=== PATIENT | female | born 1950 | race Caucasian/White ===

== ENCOUNTER 2020-11-30 17:41 | Emergency (ER) | payer MEDICARE, OTHER, SELFPAY ==
[2020-11-30 17:55] VITALS: BP 158/87; PULSE 83; RESP 16; TEMP 37.2; O2SAT 98
--- NOTE | 2020-11-30 18:41 | ED.URI ---
HPI - URI/Sore Throat General Chief Complaint: Upper Respiratory Infection Stated Complaint: sinus infection Source: patient and RN notes reviewed Mode of arrival: ambulatory Limitations: no limitations History of Present Illness HPI Narrative: Jazmin is a 70-year-old female patient who ambulated into the [facility]. Patient states she had cold-like symptoms for 1 week was feeling better then got worse yesterday. Patient states her mother yesterday and she was tearful throughout the night. Patient states she has a headache, nausea ,sinus congestion ,and postnasal drainage. Patient denies any cough. Patient states she has used Tylenol arthritis today without relief of the headache. Related Data Home Medications Medication Instructions Recorded Confirmed Vitamin D3 11/30/20 Zinc 11/30/20 ascorbic acid (vitamin C) [Vitamin 11/30/20 C] aspirin [Aspirin Childrens] 11/30/20 magnesium 11/30/20 melatonin 11/30/20 Allergies Allergy/AdvReac Type Severity Reaction Status Date / Time codeine AdvReac Shakiness Verified 11/30/20 18:44 Review of Systems Review of Systems: CONSTITUTIONAL: Denies body aches, fever, chills, or sweats. EYES: Denies visual changes, redness, or discharge. ENT: Denies rhinorrhea,+ congestion,denies sore throat, or otalgia. CARDIOVASCULAR: Denies chest pain, palpitations, or edema. RESPIRATORY: Denies cough or dyspnea. GASTROINTESTINAL: Denies abdominal pain, +nausea, denies vomiting, or diarrhea. GENITOURINARY: Denies dysuria or hematuria. SKIN: Denies rash, itching, or wounds. MUSCULOSKELETAL: Denies back pain, joint pain, or myalgia. NEUROLOGIC: + headache, denies numbness, tingling, or weakness. PSYCH: Denies depression or anxiety. All systems reviewed & are unremarkable except as noted in HPI and below PMFSH Comments At time of signature, I have reviewed and agree with nursing past medical, surgical, social and family history unless otherwise noted. Please see nursing chart for further information. There is no relevant family history pertinent to the presenting complaint Exam Narrative: GENERAL: Well-appearing, well-nourished, and in no acute distress. HEAD: Normocephalic, atraumatic. EYES: EOMI. No redness or drainage. Conjunctivae normal. ENT: Mucous membranes pink and moist. Nares clear. No rhinorrhea. TMs opaque, fluid filled, mild bulging, no erythema. Throat: clear post nasal drainage noted, mild erythema. Uvula midline. NECK: Normal AROM. Supple. Right anterior cervical lymphadenopathy. CHEST: No respiratory distress. Clear to auscultation. HEART: Regular rate and rhythm. No murmur appreciated. Normal peripheral pulses. MUSCULOSKELETAL: No bony tenderness. EXTREMITIES: Normal range of motion. No edema. SKIN: Warm, dry, no rash. Capillary refill normal. Normal skin turgor. NEURO: No focal deficits. Alert and oriented x3. Gait steady. PSYCH: Normal affect. No signs of depression or anxiety. Course Vital Signs Vital signs: Vital Signs Temperature 37.2 C 11/30/20 17:55 Pulse Rate 83 11/30/20 17:55 Respiratory Rate 16 11/30/20 17:55 Blood Pressure 158/87 H 11/30/20 17:55 Pulse Oximetry 98 11/30/20 17:55 Temperature 37.2 C 11/30/20 17:55 Pulse Rate 83 11/30/20 17:55 Respiratory Rate 16 11/30/20 17:55 Blood Pressure 158/87 H 11/30/20 17:55 Pulse Oximetry 98 11/30/20 17:55 Reviewed. Pt has been instructed to follow up with her PCP regarding her elevated blood pressure today. MDM - URI/Sore Throat Differential Diagnosis Differential diagnosis: Likely upper respiratory infection, otitis media, sinusitis and pharyngitis Critical Care Time Critical Care Time Critical Care Time: No Discharge Plan Discharge Clinical Impression: Sinusitis Qualifiers: Sinusitis location: frontal Chronicity: acute Recurrence: non-recurrent Qualified Code(s): J01.10 - Acute frontal sinusitis, unspecified Patient Dispos
== END 2020-11-30 18:50 | disposition home or self-care (01) ==
PROVIDERS: Emergency Provider Nurse Practitioner Family; PCP Internal Medicine
DX: J01.10 Acute frontal sinusitis, unspecified (principal)
CPT/HCPCS: 99203; G0463

== ENCOUNTER 2024-06-18 08:59 | Outpatient (CLI) | payer MEDICARE, SELFPAY ==
--- NOTE | ~2024-06-18 | XR_ITS ---
XR hip RT min 2V Ordering provider: Abby Hamilton, VEE History: . Rt hip pain with pivoting, onset x mos w/o injury . Comparison: None. FINDINGS: BONES: No acute fracture or dislocation. HIP JOINT SPACES: Moderate narrowing of the right hip joint. SACROILIAC JOINT SPACES/LUMBAR SPINE: The sacroiliac joint spaces are normal. Mild degenerative pinto es of the visualized lower lumbar spine. PUBIC SYMPHYSIS: Normal. SOFT TISSUES: Normal. IMPRESSION: No acute osseous abnormality pelvis and right hip. Moderate osteoarthritic changes of the right hip. Reviewed, dictated and finalized at location A.
== END 2024-06-18 09:00 | disposition home or self-care (01) ==
PROVIDERS: PCP Physician Assistant; Visit Provider Physician Assistant
DX: M16.11 Unilateral primary osteoarthritis, right hip (principal)
CPT/HCPCS: 73502